=== PATIENT | female | born 1965 ===

== ENCOUNTER 2017-03-30 07:32 | Day surgery (SDC) | payer BC, OTHER ==
[2017-03-22 08:39] VITALS: BMI 36.1
[2017-03-30] MEDS ORDERED: Lactated Ringer's 1,000 ML IV ONE (08:44)
[2017-03-30] MEDS ORDERED: Bupivacaine 0.5% Inj(30mL) ONE (09:07)
[2017-03-30] MEDS ORDERED: Lidocaine 1% Inj (20ml) ONE (09:07)
[2017-03-30] MEDS ORDERED: Rocuronium 10 mg/ml (5 ml) ONE (10:34)
[2017-03-30] MEDS ORDERED: Midazolam 2 MG/2 ML VIAL ONE (10:34)
[2017-03-30] MEDS ORDERED: Succinylcholine 200 mg/10 ml Inj IV ONE (10:34)
[2017-03-30] MEDS ORDERED: Propofol 10 mg/ml Inj (20 ML) ONE (10:34)
[2017-03-30] MEDS ORDERED: Dexamethasone 4 mg/1 ml ONE (11:15)
[2017-03-30] MEDS ORDERED: DiphenhydrAMINE 50 mg/ml Inj ONE (11:15)
[2017-03-30] MEDS ORDERED: Neostigmine Methylsulfate 2 MG/2 ML ML IV ONE (12:16)
[2017-03-30] MEDS: HYDROmorphone 0.5 mg/0.5 ml ISec IVP PRN ×3 (13:05→14:13)
[2017-03-30] MEDS ORDERED: Oxycodone/Acetaminophen 5/325 mg Tab PO PRN (14:18)
[2017-03-30 14:59] VITALS: RESP 18
[2017-03-30 16:14] VITALS: O2SAT 98
[2017-03-30] MEDS ORDERED: Oxycodone/Acetaminophen 5/325 mg Tab PO ONE (17:57)
[2017-03-30 18:23] VITALS: BP 124/77; PULSE 71; TEMP 97.8
--- NOTE | 2017-04-03 23:02 | OP ---
DATE: 03/30/2017 PREOPERATIVE DIAGNOSIS: Pelvic pain. POSTOPERATIVE DIAGNOSIS: Lysis of pelvic adhesions. PROCEDURE: Lysis of massive omental pelvic adhesions. SURGEON: Fabrizio Bennett MD. JOINT CREASER: Ruben Mackenzie MD. TYPE OF ANESTHESIA: General. ANESTHESIA ADMINISTERED BY: . DESCRIPTION OF PROCEDURE: With the patient in the dorsal lithotomy position under general anesthesia, the patient was prepped and draped in the usual sterile manner. A Méndez catheter was placed in the bladder. After this was done, a single-toothed tenaculum grasped the anterior cervix and the cervix was dilated and put in the [email or web address] uterine manipulator in place. After this was done, we moved to the abdomen where the abdomen was tented and Veress needle introduced inflating the abdomen to about 4 L of CO2. Following this, a small incision was made below the umbilicus. A #10 trocar was introduced leaving the sleeve in place and removing the trocar. The lysis began very carefully and there was a massive amount of adhesions covering the uterus. After a very tedious lysis of adhesions, we were able to visualize the uterus and finally mobilized the uterus. After this was done, the Interceed was placed around the uterus to help prevent any more adhesions. The instruments were then removed from the abdomen and the vagina. The blood loss was minimal. The patient tolerated the procedure very well. Dr. Mackenzie helped to prepare the patient from the beginning to the end of the procedure. He was doing his part. We both shared in the lysing of adhesions and he was there for the closing of the last suture and closing of the incisions in the abdomen. The patient tolerated the procedure well and was in satisfactory condition on her way to recovery room. Fabrizio Bennett MD
== END 2017-03-30 18:51 | disposition home or self-care (01) ==
LOC: H.OPSURG 07:32
PROVIDERS: ATTEND Specialist
DX: N73.6 Female pelvic peritoneal adhesions (postinfective) (principal); R10.2 Pelvic and perineal pain; K21.9 Gastro-esophageal reflux disease without esophagitis
CPT/HCPCS: 58999; J0330; J0690; J0694; J1100; J1170; J1200; J1885; J2001; J2250; J2405; J2704; J2710; J3010; J7030; J7120